=== PATIENT | male | born 1965 | race Caucasian/White ===

== ENCOUNTER 2018-04-26 06:30 | Inpatient (IN) | payer BC, OTHER ==
[2018-04-12 08:41] LABS: HEMATOCRIT 43.7 % (42.0-52.0); HEMOGLOBIN 14.8 gm/dL (14.0-18.0); MCH 27.4 pg (26.0-34.0); MCV 80.7 fL (80.0-100.0); RBC 5.41 mil/uL (4.50-6.00); RDW 15.6 % (10.5-14.5); WBC 3.3 thou/uL (4.0-11.0)
[2018-04-12 08:46] LABS: URINE BILIRUBIN NEGATIVE (Negative); URINE BLOOD NEGATIVE (Negative); URINE CLARITY CLEAR; URINE COLOR YELLOW; URINE GLUCOSE-RANDOM* NEGATIVE (Negative); URINE KETONES NEGATIVE (Negative); URINE LEUKOCYTES-REFLEX NEGATIVE (Negative); URINE NITRITE-REFLEX NEGATIVE (Negative); URINE PROTEIN (DIPSTICK) NEGATIVE (Negative); URINE SPECIFIC GRAVITY 1.025 (1.005-1.035); URINE UROBILINOGEN 0.2 E.U./dl (0.2-1.0)
[2018-04-12 08:54] LABS: PROTIME 10.7 Seconds (9.3-11.4)
[2018-04-12 08:55] LABS: ALBUMIN 3.7 g/dL (3.4-5.0); CALCIUM 9.7 mg/dL (8.5-10.1); POTASSIUM 4.1 mmol/L (3.5-5.1)
[~2018-04-26] VITALS: Ht 180.3 cm; Wt 130.2 kg
--- NOTE | ~2018-04-26 | O ---
[facility] [place] [address] OPERATIVE REPORT Name: VJCHAYA Omid Room #: 432-P [facility] IN M.R.#: [id number] Admission: 04/26/18 Attend Phys: Efren Chery MD Discharge: Date of : 65 Report #: [id number] THIS REPORT FOR: //name// CC: Efren Chery [facility] physician/PCP DATE OF SERVICE: 04/26/2018 PREOPERATIVE DIAGNOSIS: End-stage degenerative osteoarthritis, right knee with flexion contracture and moderate varus malalignment. POSTOPERATIVE DIAGNOSIS: End-stage degenerative osteoarthritis, right knee with flexion contracture and moderate varus malalignment. PROCEDURE: Right total knee arthroplasty with correction of flexion contracture and varus malalignment. SURGEON: Efren Chery MD INDICATIONS: This heavy deconditioned 53-year-old gentleman has rather severe early degenerative osteoarthritis involving both knees. Both knees demonstrate significant varus malalignment and mild flexion contracture with marked loss of joint space medially and moderate damage in other compartments. He has tried conservative measures without clear benefit. He has elected to go ahead with total knee replacement beginning on the right side. DESCRIPTION OF PROCEDURE: The patient was taken to the operating room where he was placed under general anesthesia. Prophylactic intravenous antibiotics were administered. A femoral nerve block was also applied preoperatively. The right knee and leg were meticulously prepped and draped. A thigh tourniquet was applied and inflated to 350 mmHg. An anterior longitudinal skin incision was made. This was carried through the medial retinaculum exposing the joint. Multiple large osteochondral loose bodies were identified and removed. The Gee and Nephew knee system was utilized. Intramedullary guides were used on both the femur and the tibia. The femur was cut in 5 degrees of valgus and the tibia cut perpendicular to the long axis of the bone to correct the moderate varus malalignment. Sufficient bone was resected to correct the 10-15 degree flexion contracture. There is complete loss of cartilage and some subchondral bone on the medial femoral condyle and significant destruction of the medial tibial plateau making reconstruction difficult. Multiple osteophytes and loose bodies in this area were identified and removed. With careful alignment appropriate cuts were made and the femur seemed best suited for a size 7 femoral component. The tibia was also best suited for a size 7 tibial component. Once the trial components were in position, a 9 mm polyethylene insert was placed and this seemed to reconstruct the knee nicely. This allowed good samaritan of alignment with correction of the varus malalignment and allowed full knee [address] [address] OPERATIVE REPORT Name: CHAYA ZABALA Omid Room #: 432-P [facility] IN ..#: [id number] Admission: 04/26/18 Attend Phys: Efren Chery MD Discharge: Date of : 65 Report #: [id number] extension with flexion beyond 140 degrees. The patellar surface was resected and a 38 mm patellar button seemed to fit nicely. Appropriate anchor holes were created. The patella tracks nicely and seems to be stable. The trial components were removed. The intramedullary canal was blocked with a bone block on both the femoral and tibial sides. The surfaces were thoroughly and copiously irrigated and then dried. Methyl methacrylate cement was mixed and injected into the porous surface of the proximal tibia. The Gee and Nephew size 7 Laura II right tibial baseplate was then applied, positioning this in appropriate alignment. It seated nicely and appeared to be secure. Excess cement was removed from around its margin. A 9 mm Legion cruciate retaining high flexion polyethylene insert was then applied. This was snapped into position and seated nicely and appeared to be secure. A size 7 right Legion cruciate retaining femoral component was impacted on the distal femur. A small amount of cement was used at the distal anchor holes as the bone seems to be moderately soft in this area. This component also seated nicely and appeared to be secure. The 38 mm patellar button was cemented into place using appropriate anchor holes and cement. This was secured with a patellar clamp until the cement had fully hardened. All excess cement was removed from around its margin. Once the cement had cured, range of motion, alignment and stability were once again assessed and felt to be satisfactory. The patellar tracks nicely. There is good improvement in the preoperative varus malalignment and the preoperative flexion contracture. The knee seems stable and flexes well beyond 140 degrees. At this point, the tourniquet was deflated after a total tourniquet time of 60 minutes. Good hemostasis was confirmed. A single Hemovac was left in the wound exiting through a separate stab incision. The fascia was closed with multiple #1 Vicryl sutures. The subcutaneous tissues were closed with 0 Monocryl. The skin was closed with skin aimee. A sterile dressing was applied. The patient was awakened and returned to recovery room in good condition. <ELECTRONICALLY SIGNED> By: Efren Chery MD 04/27/18 1911 [id number] 1132 Efren Chery MD /nt
[~2018-04-26 06:30] MED LIST: ADVAIR 500-501 EACH INH; LOSARTAN POTASS50 MG PO; NORVASC10 MG PO; PROAIR HFA8.5 GM INH; STOOL SOFTENER100 MG PO; TRAMADOL 50 MG50 MG PO; TYLENOL SINUS1 EAC5 PO
[2018-04-26 10:06] VITALS: BP 120/70
[2018-04-27 04:32] LABS: HEMATOCRIT 35.6 % (42.0-52.0); HEMOGLOBIN 11.9 gm/dL (14.0-18.0); MCH 27.7 pg (26.0-34.0); MCHC 33.5 g/dL (28.0-37.0); MCV 82.7 fL (80.0-100.0); RBC 4.3 mil/uL (4.50-6.00); RDW 15.4 % (10.5-14.5)
[2018-04-27 05:00] VITALS: BP 130/77
[2018-04-27 08:15] VITALS: BP 121/71
[2018-04-27 08:57] VITALS: BP 145/89
[2018-04-27 16:18] VITALS: BP 152/86
[2018-04-27 20:30] VITALS: BP 169/89
[2018-04-28 04:30] VITALS: BP 150/72
[2018-04-28 06:14] LABS: HEMATOCRIT 33.4 % (42.0-52.0); HEMOGLOBIN 11.1 gm/dL (14.0-18.0); MCH 27.7 pg (26.0-34.0); MCHC 33.2 g/dL (28.0-37.0); MCV 83.4 fL (80.0-100.0); RBC 4.01 mil/uL (4.50-6.00); RDW 15.9 % (10.5-14.5); WBC 6.8 thou/uL (4.0-11.0)
[2018-04-28 08:26] VITALS: BP 146/86
[2018-04-28 17:01] VITALS: BP 137/67
[2018-04-28 19:47] VITALS: BP 150/67
[2018-04-29 05:09] LABS: HEMATOCRIT 24.6 % (42.0-52.0); MCH 28.6 pg (26.0-34.0); MCV 84.1 fL (80.0-100.0); RBC 2.93 mil/uL (4.50-6.00); RDW 15.3 % (10.5-14.5); WBC 7.4 thou/uL (4.0-11.0)
[2018-04-29 05:13] LABS: HEMOGLOBIN 8.4 gm/dL (14.0-18.0)
[2018-04-29 05:25] VITALS: BP 140/69
[2018-04-29 09:18] VITALS: BP 134/74
[2018-04-29 12:13] LABS: HEMATOCRIT 30.9 % (42.0-52.0)
[2018-04-29 12:17] LABS: HEMOGLOBIN 10.5 gm/dL (14.0-18.0)
[2018-04-29 14:57] VITALS: BP 134/74
[2018-04-29 15:12] VITALS: BP 134/74
[2018-04-29 16:03] VITALS: BP 134/74
== END 2018-04-29 16:15 | disposition home or self-care (01) | DRG 470 ==
LOC: PRE 06:30 → TBA 07:23 → PRE 11:40 → 4E 13:42 → PRE 14:29 → ENTRNSPT 04-29 15:58 → 4E 04-29 16:15
PROVIDERS: Nurse Practitioner Acute Care; Orthopaedic Surgery
PROC: 0SRC0J9 Replacement of Right Knee Joint with Synthetic Substitute, Cemented, Open Approach (ICD-10-PCS; principal; 2018-04-26)
DX: M17.11 Unilateral primary osteoarthritis, right knee (principal); Z68.41 Body mass index [BMI] 40.0-44.9, adult; M24.561 Contracture, right knee; I10 Essential (primary) hypertension; J45.909 Unspecified asthma, uncomplicated; D64.9 Anemia, unspecified; E66.9 Obesity, unspecified; M25.461 Effusion, right knee; J44.9 Chronic obstructive pulmonary disease, unspecified; Z79.899 Other long term (current) drug therapy; Z91.011 Allergy to milk products; Z91.048 Other nonmedicinal substance allergy status; Z82.61 Family history of arthritis; Z87.891 Personal history of nicotine dependence
CPT/HCPCS: 10783; 50010; 50101; 50415; 50954; 51130; 51225; 51412; 51771; 53364; 56525; 57095; 57104; 57180; 62110; 62900; 64037; 64041; 64043; 70005

== ENCOUNTER 2019-07-18 05:47 | Inpatient (IN) | payer OTHER ==
[2019-07-06 08:43] LABS: HEMATOCRIT 45.3 % (42.0-52.0); HEMOGLOBIN 15.1 gm/dL (14.0-18.0); MCH 30.1 pg (26.0-34.0); MCHC 33.4 g/dL (28.0-37.0); MCV 90.3 fL (80.0-100.0); RBC 5.01 mil/uL (4.50-6.00); RDW 13.8 % (10.5-14.5); WBC 3.1 thou/uL (4.0-11.0)
[2019-07-06 08:51] LABS: ALBUMIN 3.8 g/dL (3.4-5.0); CALCIUM 8.8 mg/dL (8.5-10.1); POTASSIUM 3.8 mmol/L (3.5-5.1)
[2019-07-06 08:52] LABS: URINE BILIRUBIN NEGATIVE (Negative); URINE BLOOD NEGATIVE (Negative); URINE CLARITY CLEAR; URINE COLOR YELLOW; URINE GLUCOSE-RANDOM* NEGATIVE (Negative); URINE KETONES NEGATIVE (Negative); URINE LEUKOCYTES-REFLEX NEGATIVE (Negative); URINE NITRITE-REFLEX NEGATIVE (Negative); URINE PROTEIN (DIPSTICK) NEGATIVE (Negative); URINE SPECIFIC GRAVITY 1.025 (1.005-1.035); URINE UROBILINOGEN 0.2 E.U./dl (0.2-1.0)
[2019-07-06 09:05] LABS: INR 1.1; PROTIME 11.2 Seconds (9.3-11.4)
--- NOTE | 2019-07-13 12:42 | EKG ---
[facility] [place] [address] ELECTROCARDIOGRAM REPORT Name: CHAYA ZABALA Room #: PRE IN ..#: [id number] Admission: Attend Phys: Efren Chery MD Discharge: Date of : 65 Report #: [id number] THIS REPORT FOR: cc: Dale Franco MD, Keith MD Lundgren,Dwain Pérez MD [facility] THIS REPORT FOR: //name// [facility] Test Date: 2019-07-06 Test Time: 08:43:02 Pat Name: CHAYA ZABALA Department: Room: Gender: Rn Team Leader: [facility] : 1965 Requested By: Efren Chery Order Number: [id number] MD: Dwain Torres Measurements Intervals [place] Rate: 73 P: 16 NV: 165 QRS: 23 QRSD: 94 T: 34 QT: 398 QTc: 439 Interpretive Statements Sinus rhythm Normal sinus rhythm No previous ECG available for comparison Electronically Signed On 07-06-2019 16:13:30 [employer] by Dwain Torres [email or web address] <ELECTRONICALLY SIGNED> By: Dwain Torres MD, [facility] 07/06/19 1613 0843 2 Dwain Torres MD, FACC /EPI
[~2019-07-18] VITALS: Ht 180.3 cm; Wt 141.5 kg
[~2019-07-18 05:47] MED LIST changes: +APAP650 PO; +CARDIO TEA1 EACH PO; +COZAAR100 MG PO; +HYDROCHLOROTH12.5 M1 PO; +WIXELA 500-501 EACH INH; +[UNRECOGNIZED DRUG - OTHER] PO
[2019-07-18 09:21] VITALS: BP 132/76
[2019-07-18 15:00] VITALS: BP 130/77
--- NOTE | 2019-07-18 15:12 | NUR ---
CALLED DR SELBY OFFICE HE GAVE ORDER TO RESTART WIXELA INHALER, AMLODIPINE AND LOSARTAN, AND HYDROCHLOROTHIAZIDE MAY USE PATIENTS OWN INHALER IF NEEDED.
--- NOTE | 2019-07-18 20:40 | NUR ---
1300= 98.0 18 81 130/77 O2 SAT = 96% 2L/NC 13:15 98.2 18 82 O2 SAT = 96 %2L/NC 1345 + 98.2 18 86 130/76 O2 SAT 2l/NC 96% 14:15= 98.6 18 82 132/78 O2 SAT 98%2 L/NC 15:15 = 98.6 20 86 130/78 O2 SAT =98 @2 L /NC 1615 = 98.6 18 82 136/78 O2 SAT = 98% 2 L/NC 1715 + 98.6 18 86 132/78 O2 SAT = 98 2L/NC
[2019-07-18 21:12] VITALS: BP 128/72
[2019-07-19 06:36] LABS: HEMATOCRIT 39.3 % (42.0-52.0); HEMOGLOBIN 13.3 gm/dL (14.0-18.0); MCH 30.6 pg (26.0-34.0); MCHC 33.8 g/dL (28.0-37.0); MCV 90.7 fL (80.0-100.0); RBC 4.34 mil/uL (4.50-6.00); RDW 13.9 % (10.5-14.5); WBC 10.5 thou/uL (4.0-11.0)
--- NOTE | 2019-07-19 07:03 | NUR ---
Assessments completed. pain controlled with scheduled pain meds. pt uses urinal overnight. dressing to left knee clean dry and intact. hemovac in place and patent. ok dressing in place. v/s stable. no s/s of distress. will cont to monitor
--- NOTE | 2019-07-19 07:36 | O ---
[facility] [place] [address] OPERATIVE REPORT Name: CHAYA ZABALA Room #: 437-P [facility] IN M.R.#: [id number] Admission: 07/18/19 Attend Phys: Efren Chery MD Discharge: Date of : 65 Report #: [id number] THIS REPORT FOR: cc: Dale Franco MD,Dale Chery,Efren Welsh MD ~ CC: Efren Franco DATE OF SERVICE: 07/18/2019 PREOPERATIVE DIAGNOSIS: End-stage degenerative arthritis, left knee. POSTOPERATIVE DIAGNOSIS: End-stage degenerative arthritis, left knee. PROCEDURE: Left total knee arthroplasty. SURGEON: Efren Chery MD INDICATIONS: This heavy 54-year-old gentleman has progressive varus malalignment and degenerative arthritis involving both knees. He underwent right total knee replacement about 1 year ago with good result. He returns now for left total knee replacement. DESCRIPTION OF PROCEDURE: The patient was taken to the operating room where he was placed under general anesthesia. Prophylactic intravenous antibiotics were administered. A left femoral nerve block was also applied. The left lower extremity was meticulously prepped and draped. A thigh tourniquet was applied and inflated to 350 mmHg. An anterior longitudinal skin incision was made and carried along the medial parapatellar retinaculum. The patella was reflected laterally. Marked degenerative change in all 3 compartments was noted. The Gee and Nephew knee system was utilized. Intramedullary guides were used on both the femur and the tibia. The femur was cut in 5 degrees of valgus and sufficient bone resected to correct the mild preoperative flexion contracture. The tibia was cut perpendicular to long axis of the bone. The femur seemed to be best suited for a size 7 femoral component. The tibia also was best suited for a size 7 tibial component. A trial reduction was performed and a 12 mm polyethylene insert fit nicely and seemed to correct the varus malalignment and allow for full knee extension and flexion beyond 140 degrees. The patellar surface was resected and a 38 mm patellar button fit nicely. Appropriate anchor holes were created. The patella seemed to track nicely and appeared to be stable. The trial components were removed. The intramedullary canal was blocked with bone block on both the femoral and tibial sides. Methyl methacrylate cement was mixed and injected into the porous surface of the proximal tibia. The [address] [address] OPERATIVE REPORT Name: CHAYA ZABALA Room #: 437-P [facility] IN ..#: [id number] Admission: 07/18/19 Attend Phys: Efren Chery MD Discharge: Date of : 65 Report #: [id number] Nephew size 7 Laura II left nonporous tibial base plate was then applied in appropriate position and rotation. It seated nicely and appeared to be secure. A 12 mm Legion cruciate retaining high flexion polyethylene insert was applied. It snapped into place and seemed to be stable and secure. A size 7 left cruciate retaining Legion porous femoral component was applied. It was impacted on to the distal femur and seated nicely. A small amount of cement was used at the distal anchor holes where the bone was mildly soft. This component also seated nicely and appeared to be secure. A size 38 mm patellar button was cemented into place using appropriate anchor holes. It seated nicely and appeared to be secure. Excess cement was removed from around the margin. The tourniquet was deflated after a total tourniquet time of 60 minutes. The wound was copiously irrigated. Good hemostasis was noted. A single Hemovac was left in the wound exiting through a separate stab incision. The fascia was closed with multiple #1 Vicryl sutures. The subcutaneous tissues were closed with 0 Monocryl. The skin was closed with skin aimee. A sterile dressing was applied. The patient was awakened and returned to recovery room in satisfactory condition. <ELECTRONICALLY SIGNED> By: Efren Chery MD 07/19/19 0736 [id number] [id number] Efren Chery MD /nt
[2019-07-19 08:20] VITALS: BP 133/76
--- NOTE | 2019-07-19 10:32 | NUR ---
Assumed care of pt at 0700. Pt a&ox4. Pain on left knee controlled with prn pain meds. Shefali dressing in place. Hemovac drain will be discontinued today. REBEKAH hose in place. Pt worked with physical therapy this am. Fall precautions in place. Will continue to monitor.
--- NOTE | 2019-07-19 13:54 | NUR ---
PT ADMITTED RELATED TO LEFT TOTAL KNEE REPLACEMENT. CM REVIEWED CHART AND SPOKE WITH CARE TEAM. CM MET WITH PT AT BEDSIDE THIS DAY. PT IS A&O X4. CM ROLE INTRODUCED. PT INDICATED HE LIVES IN AN RV WITH HIS NEAR [facility]. PT INDICATED THERE A 5 STEPS TO ENTER AND 3 STEPS INSIDE. PT INDICATED HE HAS A FWW, CANE, AND CRUTCHES FOR HOME USE. PT HAS R KNEE DONE IN 2018 AND HAD DONE OP AT [facility]. PT HOPES TO DO THAT AGAIN UPON DC. IT IS ANTICPATED THAT PT WILL DC HOME TOMORROW WITH HIS DME AND OP PT. CM TO FOLLOW INDICATED WITH DC PLANNING.
--- NOTE | 2019-07-19 14:05 | NUR ---
PATIENT HAD LITTLE TO NO PAIN THIS AM. PATIENT WORKED WITH PHYSICAL THERAPY AND WAS ABLE TO AMBULATE DOWN THE NURSING UNIT. PAIN INCREASED AFTER AMBULATING. HEMOVAC DRAIN WAS SUPPOSED TO BE D/C. WHEN DISCONTINUING, DRAIN WAS UNABLE TO BE REMOVED AND RN WAS NOTIFIED. RN LATER DISCONTINUED DRAIN. PATIENT'S PAIN WAS HIGHER LATER IN THE DAY SO RN ADMINISTERED HYDROCODONE. BHARAT AND DRESSING ARE DRY AND INTACT. HOPES TO DISCHARGE TOMORROW.
[2019-07-19 14:57] VITALS: BP 133/69
--- NOTE | 2019-07-19 15:24 | NUR ---
I have reviewed and concur with student documentation.
[2019-07-19 20:30] VITALS: BP 152/74
[2019-07-20 00:13] VITALS: BP 137/73
--- NOTE | 2019-07-20 02:30 | NUR ---
ASSUMED CARE OF PT @1900 PT ASSESSED AT START OF SHIFT A&OX4 WITH C/O OF PAIN. PAIN MEDS GIVEN. IV INTACT AND SALINE LOCK. BHARAT DRESSING AND SCD'S INTACT. FALL PREC IN PLACE AND CALL LIGHT IN REACH WILL CONT WITH POC TILL EOS.
[2019-07-20 04:05] VITALS: BP 127/67
[2019-07-20 06:50] LABS: HEMATOCRIT 37.4 % (42.0-52.0); HEMOGLOBIN 12.4 gm/dL (14.0-18.0); MCH 30.3 pg (26.0-34.0); MCHC 33.1 g/dL (28.0-37.0); MCV 91.5 fL (80.0-100.0); RBC 4.09 mil/uL (4.50-6.00); RDW 14.1 % (10.5-14.5); WBC 7.9 thou/uL (4.0-11.0)
[2019-07-20 09:20] VITALS: BP 146/85
[2019-07-20 16:20] VITALS: BP 139/77
--- NOTE | 2019-07-20 20:02 | NUR ---
Assumed care of pt at 0700. Pt a&ox4. Pain controlled with prn pain meds. Dressing c/d/i. Up SBA with walker and gaitbelt. Pt states he has not had a BM since Thursday. Provider aware. Miralax added on pt's Emar. Call light within reach. Family at bedside. Fall precautions in place.
[2019-07-20 21:15] VITALS: BP 129/71
--- NOTE | 2019-07-21 03:29 | NUR ---
ASSESSED AT START OF SHIFT PT SITTING IN CHAIR. A&OX4 C/O OF PAIN MEDS GIVEN. PT UP WITH ASSITS X1 WITH WALKER AND GAITBELT. FALL PREC IN PLACE AND BHARAT DRESSING INTACT. PT TRANSFRED BACK TO BED AT NIGHT TIME. MIRILAX GIVENX1 THIS SHIFT STILL AWAITING BM WILL CONT TO MONITOR TILL EOS
[2019-07-21 05:01] VITALS: BP 137/74
[2019-07-21 06:38] LABS: HEMATOCRIT 36.6 % (42.0-52.0); HEMOGLOBIN 12.2 gm/dL (14.0-18.0); MCH 30.6 pg (26.0-34.0); MCHC 33.2 g/dL (28.0-37.0); RBC 3.97 mil/uL (4.50-6.00); RDW 14.1 % (10.5-14.5); WBC 6.3 thou/uL (4.0-11.0)
[2019-07-21 07:45] VITALS: BP 119/76
[2019-07-21 13:52] VITALS: BP 119/76
--- NOTE | 2019-07-21 15:36 | NUR ---
Assumed care of pt at 0700. Pt a&ox4. Pain controlled with prn pain meds. Dressing c/d/i. Pt worked with physical therapy. Pt states the doctor already gave him prescriptions for pain medication. Call light within reach. Family at bedside. Fall precautions in place. Pt discharging home.
--- NOTE | 2019-07-21 16:44 | D ---
[facility] [place] [address] DISCHARGE SUMMARY Name: CHAYA ZABALA Room #: 437-P [facility] IN M.R.#: [id number] Admission: 07/18/19 Attend Phys: Efren Chery MD Discharge: 07/21/19 Date of : 65 Report #: [id number] THIS REPORT FOR: cc: Dale Franco MD,Dale Chery,Efren Welsh MD ~ THIS REPORT FOR: //name// CC: Efren Franco DATE OF SERVICE: 07/21/2019 FINAL DIAGNOSES: 1. End-stage degenerative arthritis, left knee. 2. Hypertension. OPERATION PROCEDURES: Left total knee arthroplasty. HISTORY OF PRESENT ILLNESS: This 54-year-old gentleman with progressive degenerative arthritis in multiple joints and underwent previous right total knee replacement with good result. He returns now for planned left total knee replacement. HOSPITAL COURSE: The patient was admitted and taken to the operating room on 07/18/2019. He underwent left total knee replacement, which he tolerated nicely. Postoperatively, his course was largely unremarkable. He was able to resume a regular diet and moved from IV analgesics to oral analgesics. He was able to resume his routine antihypertensive medications. He started with organized therapy and made good progress. He had moderate Hemovac output, but his hemoglobin remained reasonably stable at about 12.4. He seems now safe and independent and functional with his walker. His range of motion is improving. The knee dressing is clean and dry. He is anxious for hospital discharge today on 07/21/2019. DISCHARGE MEDICATIONS: Include Norvasc 10 mg daily, albuterol 2 puffs q. 6 hours p.r.n., Cozaar 100 mg daily, hydrochlorothiazide 12.5 mg daily, Xarelto 10 mg daily, hydrocodone 10 mg one q.6 hours p.r.n. for pain. DISCHARGE INSTRUCTIONS: He will continue a regular diet. He will continue gradually advancing independent exercise at home and plans to begin outpatient therapy next week. I have asked him to call me if any problems or questions. [facility] [address] [place] [address] DISCHARGE SUMMARY Name: CHAYA ZABALA Room #: 437-P [facility] IN M.R.#: [id number] Admission: 07/18/19 Attend Phys: Efren Chery MD Discharge: 07/21/19 Date of : 65 Report #: [id number] We will plan to see him back in the office at 1 week and 2 weeks postoperatively. <ELECTRONICALLY SIGNED> By: Efren Chery MD 07/21/19 1644 0742 0754 Efren Chery MD /nt
== END 2019-07-21 15:57 | disposition home or self-care (01) | DRG 470 ==
LOC: TBA 05:47 → 4S 05:47 → TBA 08:03 → PRE 08:49 → 4S 14:12 → TBA 22:37 → ENTRNSPT 07-21 15:26 → EDTRNSPTSTS 07-21 15:31 → 4S 07-21 15:57
PROVIDERS: ADMIT Orthopaedic Surgery
PROC: 0SRD0J9 Replacement of Left Knee Joint with Synthetic Substitute, Cemented, Open Approach (ICD-10-PCS; principal; 2019-07-18)
DX: M17.12 Unilateral primary osteoarthritis, left knee (principal); Z68.41 Body mass index [BMI] 40.0-44.9, adult; E66.9 Obesity, unspecified; J45.909 Unspecified asthma, uncomplicated; I10 Essential (primary) hypertension; Z79.899 Other long term (current) drug therapy; Z79.01 Long term (current) use of anticoagulants; Z79.891 Long term (current) use of opiate analgesic; Z82.61 Family history of arthritis; Z91.011 Allergy to milk products; Z91.018 Allergy to other foods
CPT/HCPCS: 10102; 50010; 50101; 50415; 50954; 51130; 51225; 51412; 53364; 56525; 57095; 57104; 57181; 62110; 62900; 64039; 70005